=== PATIENT | male | born 1965 ===

== ENCOUNTER → 2018-05-25 21:32 | Outpatient (REF) | payer OTHER, SELFPAY ==
[2018-05-25 21:36] LABS: Bacteria Urine None Seen
[2018-05-25 21:51] LABS: Appearance Urine UA CLEAR; Bilirubin Urine UA NEGATIVE (NEGATIVE); Color Urine UA YELLOW; Glucose Urine UA NEGATIVE (Normal); Ketones Urine UA NEGATIVE (NEGATIVE); Leukocyte Esterase Urine UA NEGATIVE (NEGATIVE); Nitrite Urine UA NEGATIVE (Negative); Occult Blood Urine UA NEGATIVE (Negative); Protein Urine UA NEGATIVE (Negative); Specific Gravity Urine UA >=1.030 (1.000-1.035); Urobilinogen Urine UA 0.2 E.U./dL (0.2)
[2018-05-25 22:25] LABS: Add Manual Diff / Slide Review NO; Basophils Percent Auto 0.7 % (0-2); Culture Indicated Urine Cult Not Indicated; Eosinophils Percent Auto 3.3 % (2-4); Granular Casts Urine 0-1/LPF; Hematocrit 41.3 % (41-53); Hemoglobin 14.2 g/dL (13.5-17.5); Mean Corpuscular HGB Conc 34.4 % (30-36); Mean Corpuscular Hemoglobin 30.5 PG (26-34); Mean Corpuscular Volume 88.7 fL (80-100); Monocytes Percent Auto 13.4 % (3-14); Mucus Urine 1+ (Negative); Neutrophils Absolute Auto 7600 /uL (3000-5900); Neutrophils Percent Auto 68.6 % (50-75); Platelet Count 291 X10^3/uL (150-400); RBC Urine 0-1/HPF (0-5/HPF); Red Blood Cell Count 4.66 X10^6/uL (4.5-5.9); Red Cell Distribution Width 13.1 % (11.6-14.8); WBC Urine 0-1/HPF (0-5/HPF); White Blood Cell Count 11.2 X10^3/uL (4.5-11.0)
[2018-05-25 22:46] LABS: Hemoglobin A1C% w Est Avg Glu 5.8 % (4.0-6.0)
[2018-05-25 23:51] LABS: Alanine Aminotransferase 34 IU/L (21-72); Albumin 3.9 g/dL (3.5-5.0); Albumin Globulin Ratio 1.4 (1.0-2.8); Alkaline Phosphatase 67 U/L (38-126); Aspartate Aminotransferase 33 IU/L (17-59); BUN Creatinine Ratio 21.1 (6-22); Bilirubin Total 0.9 mg/dL (0.2-1.3); Blood Urea Nitrogen 19 mg/dL (9-20); Calcium 9.2 mg/dL (8.4-10.2); Carbon Dioxide 33 mmol/L (22-32); Chloride 100 mmol/L (98-107); Cholesterol 125 mg/dL (140-199); Estimated Glomerular Filt Rate > 60.0 mL/min (>60); Globulin 2.8 g/dL (1.7-4.1); Glucose 102 mg/dL (70-100); HDL Cholesterol 50 mg/dL (40-60); HEMOLYSIS < 15 (0-50); LDL Cholesterol Calculated 66 mg/dL (<100); Potassium 4.7 mmol/L (3.4-5.1); Sodium 142 mmol/L (137-145); Total Protein 6.7 g/dL (6.3-8.2); Triglycerides 45 mg/dL (35-150)
[2018-05-26 08:17] LABS: TSH w/ Reflex to FT4 1.08 uIU/mL (0.47-4.68)
== END ==
LOC: LAB 21:32
PROVIDERS: Visit Provider Naturopath
DX: Z00.01 Encounter for general adult medical examination with abnormal findings (principal); J15.8 Pneumonia due to other specified bacteria; R15.2 Fecal urgency
CPT/HCPCS: 36415; 80053; 80061; 81001; 82728; 83036; 84443; 85025